=== PATIENT | female | born 1955 | race Caucasian/White ===

== ENCOUNTER → 2016-06-01 | Outpatient (CLI) | payer BC | LOC: MC.RAD 13:50 | DX: Z12.31 Encounter for screening mammogram for malignant neoplasm of breast (principal); Z80.3 Family history of malignant neoplasm of breast ==

== ENCOUNTER → 2016-12-15 | Outpatient (CLI) | payer BC | LOC: ZCOL.LAB 16:48 | DX: Z01.89 Encounter for other specified special examinations (principal) ==

== ENCOUNTER → 2017-09-09 | Outpatient (CLI) | payer BC | LOC: MC.RAD 13:55 | DX: Z12.31 Encounter for screening mammogram for malignant neoplasm of breast (principal) ==

== ENCOUNTER → 2019-01-20 | Outpatient (CLI) | payer MEDICARE, BC | LOC: MC.RAD 13:04 | DX: Z12.31 Encounter for screening mammogram for malignant neoplasm of breast (principal) ==

== ENCOUNTER → 2020-02-13 | Outpatient (CLI) | payer MEDICARE, BC | LOC: MC.RAD 15:39 | DX: Z12.31 Encounter for screening mammogram for malignant neoplasm of breast (principal) ==